=== PATIENT | female | born 1955 | race Caucasian/White ===

== ENCOUNTER 2019-02-19 17:39 | Observation (INO) ==
[2019-02-19] MEDS ORDERED: NORMAL SALINE 1,000 ML IV ONE (18:07)
[2019-02-19 18:18] LABS: Hematocrit 36.1 % (37.0-47.0); Hemoglobin 12.1 gm/dL (12.5-16.0); Mean Cell Volume 91.4 fl (78-100); Mean Corpuscular Hemoglobin 30.6 pg (27-31); Mean Corpuscular Hgb Conc 33.5 g/dl (32-36); Mean Platelet Volume 9.5 fl (8-12.5); Neutrophil # 2.7 K/mm3 (1.3-6.0); Neutrophil % 62.4 % (42-75.0); Platelet Count 217 K/mm3 (150-450); Red Blood Count 3.95 M/mm3 (4.2-5.4); Red Cell Distribution Width 11.8 % (11.5-14.0); White Blood Count 4.4 K/mm3 (4.0-10.5)
--- NOTE | 2019-02-19 18:46 | ERNOTE ---
Medical Problem HPI - Narrative Date of Service: 02/19/19 - General Chief Complaint: Diabetes Related Problem Time Seen by Provider: 02/19/19 17:52 Source: patient, family Exam Limitations: no limitations - Immun/Allergies/Home Medications Immunizations: IMMUNIZATION HX Immunizations Up to Date Yes Allergies/Adverse Reactions: Allergies gluten Adverse Reaction (Severe, Verified 02/19/19 18:30) lactose Adverse Reaction (Severe, Verified 02/19/19 18:30) Diarrhea Home Medications: HOME MEDICATIONS Multivitamin [Multivitamins] 1 ea PO 02/19/19 [Last Taken Unknown] - History of Present History Narrative: patient presents to the ED via EMS for low blood sugar. She has been having problems with her blood sugar dropping low several times now. was seen in [facility] for this, no clear cause. Today she was not responding, EMS called and Blood Sugar 26. She was given 1amp D50 and came back to normal. Now she feels improved. No CP or SOB. No abdominal pain. She does NOT take Insulin or any diabetes medications that would drop her blood sugar. No clear cause has been found for this. She has ot been fasting. Timing: gone now Severity: severe Modifying Factors - (Improves): Present: other - IV dextrose Modifying Factors - (Worsens): Present: other - nothign Review of Systems - Review of Systems Constitutional: Absent: fever ENT: Absent: sore throat Respiratory: Absent: shortness of breath Cardiology: Absent: chest pain Gastrointestinal/Abdominal: Absent: abdominal pain All Other Systems: All systems neg except as marked Medical History (Updated 02/19/19 @ 18:10 by Debby Hannah RN) Rheumatic fever Surgical History: Surgical History (Updated 02/19/19 @ 18:11 by Debby Hannah RN) H/O dilation and curettage History of adenoidectomy History of appendectomy Hx of tonsillectomy Family History: Family History (Updated 02/19/19 @ 18:22 by Bella Church) Other Dementia Heart disease Physical Exam - Physical Exam General Appearance: Present: alert, no apparent distress Head Exam: Present: normal inspection, no evidence of injury Eye Exam: Normal inspection: bilateral, PERRL: bilateral Ears, Nose, Throat: Present: normal ENT inspection Neck: Present: normal inspection Respiratory: Present: no respiratory distress, normal breath sounds, no accessory muscle use, lungs clear Cardiovascular/Chest: Present: regular rate, rhythm, normal peripheral pulses Gastrointestinal/Abdominal: Present: normal bowel sounds, nontender, nondistended, soft Back Exam: Absent: CVA tenderness (R), CVA tenderness (L) Extremity Exam: Present: other - no deformity Neurological Exam: Present: other - she has some generalize dweakness but no acute unilateral focal motor or sensory deficits Skin Exam: Present: normal color, warm/dry Progress - Results and Orders Patient's Lab Results:: I have reviewed the patient's lab results. - Vital Signs Patient's Vital Signs:: I have reviewed the patient's vital signs. Vital Signs: Vital Signs 02/19/19 17:54 02/19/19 18:00 02/19/19 18:11 Temperature 36.7 C Pulse Rate 74 74 74 Respiratory Rate 12 12 Blood Pressure 88/51 L 120/57 O2 Sat by Pulse Oximetry 96 96 - Progress/Reassessment Chief Complaint: Diabetes Related Problem Progress Note-Subjective: 02/19/19 19:06 Patient had normalization of her blood sugar. She had significant hypoglycemia. I feels she needs obs as she does not have any clear reason for this severe hypoglycemia. Patient agreeable. I discussed the case with Dr De Los Santos who will admit the patient. Departure Clinical Impression: Nondiabetic hypoglycemia - Departure Disposition: Still a patient Condition: Stable
[2019-02-19 18:47] LABS: ALT 20 U/L (19-67); AST 21 U/L (0-48); Albumin * 3.1 gm/dl (3.4-5.0); Alkaline Phosphatase * 61 U/L (50-170); Anion Gap 12.2 mmol/L (6.8-13.8); BUN/Creatinine Ratio 9.6 (9.0-21.6); Bilirubin, Total 0.7 mg/dL (0.0-1.1); Blood Urea Nitrogen 8 mg/dL (3-23); Ca. Corrected For Albumin 8.6 mg/dL (8.4-10.2); Calcium * 8.2 mg/dL (7.9-10.9); Carbon Dioxide 27.7 mmol/L (24-32.6); Chloride 105 mmol/L (97-106); Glucose * 118 mg/dL (70-110); Lipase 103 U/L (73-393); Potassium 3.9 mmol/L (3.4-4.6); Sodium 141 mmol/L (132-142); TSH * 2.782 uIU/mL (0.358-3.74); Total Protein 6.3 gm/dL (6.2-8.2)
[2019-02-19 19:24] LABS: Hemoglobin A1C 4.1 % (4.00-6.0)
[2019-02-19 19:28] LABS: Urine Appearance Clear (CLEAR); Urine Bilirubin Negative (NEGATIVE); Urine Blood Negative /ul (NEGATIVE); Urine Color Yellow; Urine Ketone Negative (NEGATIVE); Urine Nitrite Negative (NEGATIVE); Urine Protein Negative (NEGATIVE); Urine Urobilinogen Normal (NORMAL)
[2019-02-19 19:29] LABS: Urine Bacteria None Seen; Urine RBC None Seen /hpf (0-5); Urine WBC 0-5 /hpf (0-5)
[2019-02-19 19:32] LABS: Cocaine Ur Negative (NEGATIVE); Urine Barbiturate Negative (NEGATIVE); Urine Benzodiazepines Negative (NEGATIVE); Urine Opiates Negative (NEGATIVE); Urine PCP Negative (NEGATIVE); Urine THC Negative (NEGATIVE)
[2019-02-19] MEDS ORDERED: DEXTROSE 5%-0.5 NORMAL SALINE 1,000 ML IV PRN (21:22)
[2019-02-20] MEDS ORDERED: DEXTROSE 50%-WATER 50 ML SYRG IV PRN (01:41)
[2019-02-20 05:38] LABS: Albumin * 2.9 gm/dl (3.4-5.0); Anion Gap 12.4 mmol/L (6.8-13.8); Bilirubin, Total 0.9 mg/dL (0.0-1.1); Ca. Corrected For Albumin 8.8 mg/dL (8.4-10.2); Calcium * 8.2 mg/dL (7.9-10.9); Carbon Dioxide 26.6 mmol/L (24-32.6); Total Protein 5.9 gm/dL (6.2-8.2)
--- NOTE | 2019-02-20 08:52 | HPDIS ---
Chief Complaint - Chief Complaint Date of Service: 02/20/19 Time of Service: 07:46 Chief Complaint: Altered mental status History of Present Illness: 64-year-old female with no significant past medical history presents with altered mental status. She was taking a nap yesterday afternoon, when her tried to wake her up she was unarousable. EMS was called and they found her blood sugar to be 26. She was given 1 amp of D50 with normalization of her blood sugar. She was brought to the emergency department and her sugar remained stable. She states she has had episodes of hypoglycemia in the past with the first 1 being 4 months ago. She was taken to the emergency department given IV glucose and her symptoms resolved and she was sent home. She states her son also has similar episodes when he is stressed. She states she has been having increased stress recently due to relocating from [facility] to [place]. She has not been eating a regular diet because her kitchen is not in a functional status. She and her have been eating out more frequently. She also has been eating a restricted diet with no fruits, no juice and low-carbohydrate because a doctor in [facility] had modified her diet. Medical History (Updated 02/20/19 @ 08:52 by Laura Rubio MD) Chest pain Pneumonia Rheumatic fever Surgical History: Surgical History (Updated 02/19/19 @ 18:11 by Debby Hannah RN) H/O dilation and curettage History of adenoidectomy History of appendectomy Hx of tonsillectomy Family History: Family History (Updated 02/19/19 @ 18:22 by Bella Church) Other Dementia Heart disease Social History: (Last Updated 02/19/19 @ 20:18 by Alexandra Sebastian RN) Social History: Marital status: household members: spouse current occupational status: retired Tobacco: Smoking Status: Former smoker how long ago did patient quit smokin years ago Alcohol: alcohol intake: never Substance Use: substance use type: does not use Dietary Habits: diet: gluten free, lactose free Radha/Worship: radha/gnosticist: Cheondoism Radha Personal Safety: do you feel safe at home: Yes victim of physical abuse: No victim of emotional abuse: No victim of sexual abuse: No Review Of Systems (GEN) - Review of Systems Generalized/Overall Review: Absent: Chills, Fever Respiratory: Absent: Shortness of Breath Cardiac: Absent: Chest Pain Abdominal: Absent: Abdominal Pain Misc: All systems neg except as marked Immunizations: IMMUNIZATION HX Immunizations Up to Date Yes Allergies/Adverse Reactions: Allergies Allergy/AdvReac Type Severity Reaction Status Date / Time gluten AdvReac Severe Verified 02/19/19 20:10 lactose AdvReac Severe Diarrhea Verified 02/19/19 20:10 Home Medications: HOME MEDICATIONS Multivitamin [Multivitamins] 1 ea PO DAILY 02/19/19 [Last Taken Unknown] Ubidecarenone [Co Q-10] 10 mg PO DAILY 02/19/19 [Last Taken Unknown] Vitamin D3 1 tab DAILY 02/19/19 [Last Taken Unknown] Exam - Exam Vital Signs: Vital Signs - Last Taken Temp 37.1 C 02/20/19 06:50 Pulse 64 02/20/19 06:50 Resp 12 02/20/19 06:50 BP 119/59 02/20/19 06:50 Pulse Ox 98 02/20/19 06:50 Constitutional: Present: Alert, Oriented x3, Cooperative, Well developed, Well nourished, No distress, Middle aged ENT Exam: Present: hearing grossly normal Eye Exam: bilateral eye: normal inspection, EOMI Neck: Present: non-tender, trachea midline. Absent: lymphadenopathy (R), lymphadenopathy (L) Back Exam: Present: normal inspection, no CVA tenderness, no vertebral tenderness Respiratory: Present: lungs clear, no respiratory distress, no accessory muscle use, No wheezing. Absent: crackles, rhonchi Cardiovascular/Chest: Present: normal peripheral pulses, regular rate, rhythm, no edema, no murmur Peripheral Pulses: dorsalis-pedis (R): 2+, dorsalis-pedis (L): 2+ Abdomen: Present: Normal bowel sounds, soft, nontender Extremity: Present: non-tender, no pedal edema Skin Exam: Present: normal color, warm/dry Neurologic: Present: alert, normal mood/affect. Absent: dizzy/light-headedness Appearance: Present: appropriate appearance, appropriate insight Eye contact: Present: cooperative, good eye contact, normal speech Thoughts: Present: normal thought pattern, normal mood /affect Diagnostic Studies: Abnormal Lab Results 02/19/19 02/19/19 02/19/19 Range/Units 18:09 18:09 19:15 RBC 3.95 L (4.2-5.4) M/mm3 Hgb 12.1 L (12.5-16.0) gm/dL Hct 36.1 L (37.0-47.0) % Monocytes % 10.0 H (0.0-9) % Lymphocytes # 1.10 L (1.5-3.5) k/mm3 Chloride (97-106) mmol/L Random Glucose 118 H (70-110) mg/dL ALT (19-67) U/L Total Protein (6.2-8.2) gm/dL Albumin 3.1 L (3.4-5.0) gm/dl Urine Glucose (UA) 100 H (NEGATIVE) mg/dL 02/20/19 Range/Units 05:00 RBC (4.2-5.4) M/mm3 Hgb (12.5-16.0) gm/dL Hct (37.0-47.0) % Monocytes % (0.0-9) % Lymphocytes # (1.5-3.5) k/mm3 Chloride 107 H (97-106) mmol/L Random Glucose (70-110) mg/dL ALT 17 L (19-67) U/L Total Protein 5.9 L (6.2-8.2) gm/dL Albumin 2.9 L (3.4-5.0) gm/dl Urine Glucose (UA) (NEGATIVE) mg/dL Laboratory Results WBC 4.4 K/mm3 (4.0-10.5) 02/19/19 18:09 RBC 3.95 M/mm3 (4.2-5.4) L 02/19/19 18:09 Hgb 12.1 gm/dL (12.5-16.0) L 02/19/19 18:09 Hct 36.1 % (37.0-47.0) L 02/19/19 18:09 MCV 91.4 fl (78-100) 02/19/19 18:09 MCH 30.6 pg (27-31) 02/19/19 18:09 MCHC 33.5 g/dl (32-36) 02/19/19 18:09 RDW 11.8 % (11.5-14.0) 02/19/19 18:09 Plt Count 217 K/mm3 (150-450) 02/19/19 18:09 MPV 9.5 fl (8-12.5) 02/19/19 18:09 Immature Gran % (Auto) 0.20 % (0.001-0.429) 02/19/19 18:09 Immature Gran # (Auto) 0.01 K/mm3 (0.000-0.0310) 02/19/19 18:09 62.4 % (42-75.0) 02/19/19 18:09 25.1 % (20-51) 02/19/19 18:09 10.0 % (0.0-9) H 02/19/19 18:09 1.6 % (0.0-3.0) 02/19/19 18:09 0.7 % (0.0-1.0) 02/19/19 18:09 Nucleated RBC % 0.0 k/mm3 (0-1) 02/19/19 18:09 2.7 K/mm3 (1.3-6.0) 02/19/19 18:09 1.10 k/mm3 (1.5-3.5) L 02/19/19 18:09 0.4 k/mm3 (0.0-1.0) 02/19/19 18:09 0.1 k/mm3 (0.0-0.7) 02/19/19 18:09 Absolute Basophils 0.0 k/mm3 (0.0-0.1) 02/19/19 18:09 Sodium 142 mmol/L (132-142) 02/20/19 05:00 142 mmol/L (130-142) 02/20/19 05:00 Potassium 4.0 mmol/L (3.4-4.6) 02/20/19 05:00 Chloride 107 mmol/L (97-106) H 02/20/19 05:00 Carbon Dioxide 26.6 mmol/L (24-32.6) 02/20/19 05:00 12.4 mmol/L (6.8-13.8) 02/20/19 05:00 BUN 8 mg/dL (3-23) 02/20/19 05:00 0.80 mg/dL (0.4-1.4) 02/20/19 05:00 Est GFR (Non-Af Amer) 77 mL/min (60-130) 02/20/19 05:00 10.0 (9.0-21.6) 02/20/19 05:00 107 mg/dL (70-110) 02/20/19 05:00 51 mg/dL 02/19/19 18:09 4.1 % (4.00-6.0) 02/19/19 18:09 1.9 mmol/L (0.4-2.0) 02/19/19 18:09 Calcium 8.2 mg/dL (7.9-10.9) 02/20/19 05:00 Calcium Adj for Albumin 8.8 mg/dL (8.4-10.2) 02/20/19 05:00 0.9 mg/dL (0.0-1.1) 02/20/19 05:00 AST 31 U/L (0-48) 02/20/19 05:00 ALT 17 U/L (19-67) L 02/20/19 05:00 63 U/L (50-170) 02/20/19 05:00 5.9 gm/dL (6.2-8.2) L 02/20/19 05:00 2.9 gm/dl (3.4-5.0) L 02/20/19 05:00 103 U/L (73-393) 02/19/19 18:09 TSH 2.782 uIU/mL (0.358-3.74) 02/19/19 18:09 Yellow 02/19/19 19:15 Clear (CLEAR) 02/19/19 19:15 7.0 pH (5.0-7.0) 02/19/19 19:15 Ur Specific Hudson 1.010 SP.GR. (1.005-1.010) 02/19/19 19:15 Negative mg/dL (NEGATIVE) 02/19/19 19:15 100 mg/dL (NEGATIVE) H 02/19/19 19:15 Negative mg/dL (NEGATIVE) 02/19/19 19:15 Negative /ul (NEGATIVE) 02/19/19 19:15 Negative (NEGATIVE) 02/19/19 19:15 Negative mg/dl (NEGATIVE) 02/19/19 19:15 Normal EU/dl (NORMAL) 02/19/19 19:15 Ur Leukocyte Esterase Negative /ul (NEGATIVE) 02/19/19 19:15 None seen /hpf (0-5) 02/19/19 19:15 0-5 /hpf (0-5) 02/19/19 19:15 Ur Epithelial Cells 0-5 /hpf (0-5) 02/19/19 19:15 None seen (NONE) 02/19/19 19:15 No culture indicated 02/19/19 19:15 Negative (NEGATIVE) 02/19/19 19:15 Negative (NEGATIVE) 02/19/19 19:15 Ur Phencyclidine Scrn Negative (NEGATIVE) 02/19/19 19:15 Urine Amphetamine Negative (NEGATIVE) 02/19/19 19:15 U Benzodiazepines Scrn Negative (NEGATIVE) 02/19/19 19:15 Negative (NEGATIVE) 02/19/19 19:15 Negative (NEGATIVE) 02/19/19 19:15 Ethyl Alcohol Less than 3.0 mg/dL (0.0-10.0) 02/19/19 18:09 Assessment/Plan - Narrative Narrative: 64-year-old female with no significant past medical history presents with altered mental status. She was taking a nap yesterday afternoon, when her tried to wake her up she was unarousable. EMS was called and they found her blood sugar to be 26. She was given 1 amp of D50 with normalization of her blood sugar. She was brought to the emergency department and her sugar remained stable. She states she has had episodes of hypoglycemia in the past with the first 1 being 4 months ago. She was taken to the emergency department given IV glucose and her symptoms resolved and she was sent home. She states her son also has similar episodes when he is stressed. She states she has been having increased stress recently due to relocating from [facility] to [place]. She has not been eating a regular diet because her kitchen is not in a functional status. She and her have been eating out more frequently. She also has been eating a restricted diet with no fruits, no juice and low-carbohydrate because a doctor in [facility] had modified her diet. - Assessment/Plan (1) Altered mental status, unspecified Problem: Acute (2) Nondiabetic hypoglycemia Problem: Acute (1) Altered mental status, unspecified Problem: Resolved (2) Nondiabetic hypoglycemia Problem: Resolved Description of Stay: 64-year-old female with no significant past medical history presents with altered mental status. She was taking a nap yesterday afternoon, when her tried to wake her up she was unarousable. EMS was called and they found her blood sugar to be 26. She was given 1 amp of D50 with normalization of her blood sugar. She was brought to the emergency department and her sugar remained stable. She states she has had episodes of hypoglycemia in the past with the first 1 being 4 months ago. She was taken to the emergency department given IV glucose and her symptoms resolved and she was sent home. She states her son also has similar episodes when he is stressed. She states she has been having increased stress recently due to relocating from [facility] to [place]. She has not been eating a regular diet because her kitchen is not in a functional st atus. She and her have been eating out more frequently. She also has been eating a restricted diet with no fruits, no juice and low-carbohydrate because a doctor in [facility] had modified her diet. Overnight she had an episode of her blood sugar dropping down to 51, she responded to an amp of D50 again. Currently she is alert and oriented x3, she is eating her breakfast. She may need a work-up for endogenous hyperinsulinism is which would not be appropriate to perform as an inpatient. She has an appointment with a primary care physician tomorrow morning Thursday, February 21, 2019. Advised her that she should speak with her primary doctor regarding working her up or sending her to an emergency veterinarian. Advised that she should increase her carbohydrate intake and make sure she eats regularly throughout the day, she can drink juice and eat fruit as much as she would like in order to keep her blood sugar up. Advised that she should try to eat something every 1-2 hours. Procedures Performed: none Results and Findings: Lab Pending Results 02/19/19 18:09: WBC 4.4, RBC 3.95 L, Hgb 12.1 L, Hct 36.1 L, MCV 91.4, MCH 30.6, MCHC 33.5, RDW 11.8, Plt Count 217, MPV 9.5, Immature Gran % (Auto) 0.20, Immature Gran # (Auto) 0.01, Neutrophils % 62.4, Lymphocytes % 25.1, Monocytes % 10.0 H, Eosinophils % 1.6, Basophils % 0.7, Nucleated RBC % 0.0, Neutrophils # 2.7, Lymphocytes # 1.10 L, Monocytes # 0.4, Eosinophils # 0.1, Absolute Basophils 0.0 02/19/19 18:09: Sodium 141, Plasma Sodium 141, Potassium 3.9, Chloride 105, Carbon Dioxide 27.7, Anion Gap 12.2, BUN 8, Creatinine 0.83, Est GFR (Non-Af Amer) 73, BUN/Creatinine Ratio 9.6, Random Glucose 118 H, Calcium 8.2, Calcium Adj for Albumin 8.6, Total Bilirubin 0.7, AST 21, ALT 20, Alkaline Phosphatase 61, Total Protein 6.3, Albumin 3.1 L, Lipase 103, TSH 2.782, Ethyl Alcohol Less than 3.0 02/19/19 18:09: Lactic Acid, Venous 1.9 02/19/19 18:09: Mean Blood Glucose 51, Hemoglobin A1c 4.1 02/19/19 19:15: Urine Color Yellow, Urine Appearance Clear, Urine pH 7.0, Ur Specific Hudson 1.010, Urine Protein Negative, Urine Glucose (UA) 100 H, Urine Ketones Negative, Urine Blood Negative, Urine Nitrate Negative, Urine Bilirubin Negative, Urine Urobilinogen Normal, Ur Leukocyte Esterase Negative, Urine RBC None seen, Urine WBC 0-5, Ur Epithelial Cells 0-5, Urine Bacteria None seen, Urine Culture Comments No culture indicated 02/19/19 19:15: Urine Opiates Screen Negative, Barbiturate Screen Negative, Ur Phencyclidine Scrn Negative, Urine Amphetamine Negative, U Benzodiazepines Scrn Negative, Urine Cocaine Screen Negative, Urine Marijuana (THC) Negative 02/20/19 05:00: Sodium 142, Plasma Sodium 142, Potassium 4.0, Chloride 107 H, Carbon Dioxide 26.6, Anion Gap 12.4, BUN 8, Creatinine 0.80, Est GFR (Non-Af Amer) 77, BUN/Creatinine Ratio 10.0, Random Glucose 107, Calcium 8.2, Calcium Adj for Albumin 8.8, Total Bilirubin 0.9, AST 31, ALT 17 L, Alkaline Phosphatase 63, Total Protein 5.9 L, Albumin 2.9 L Discharge Location: Home Disposition: Home self-care Condition: Stable Discharge Activity: Activity as tolerated Discharge Diet: General/regular food Complete Home Medications List: Complete Home Medication List: Multivitamin [Multivitamins] 1 ea PO DAILY 02/19/19 Ubidecarenone [Co Q-10] 10 mg PO DAILY 02/19/19 Vitamin D3 1 tab DAILY 02/19/19
[2019-02-20 11:04] VITALS: BP 120/64
== END 2019-02-20 11:35 | disposition home or self-care (01) ==
LOC: MS 17:39 → ER 17:39 → MS 19:43
PROVIDERS: ADMIT Internal Medicine; ATTEND Internal Medicine
CPT/HCPCS: 36415; 80053; 80307; 80320; 81001; 83036; 83525; 83527; 83605; 83690; 84443; 85025; 96361; 96374; 99284; G0378; G0481